=== PATIENT | male | born 1985 | race Two or more races ===

== ENCOUNTER 2017-11-05 13:17 | Inpatient (IN) | payer MEDICAID, OTHER ==
[~2017-11-05] VITALS: Ht 185.4 cm; Wt 135.2 kg
[2017-11-05] MEDS ORDERED: SODIUM CHLORIDE 0.9% 1,000 ML IV ONE (14:02)
[2017-11-05 14:57] LABS: Basophils # (auto) 0.1 uL; Basophils % (auto) 1.5 % (0.0-2.0); Eosinophils # (auto) 0.1 uL; Eosinophils % (auto) 1.4 % (0.0-7.0); Hematocrit 49.2 % (41.0-53.0); Hemoglobin 16.2 g/dL (13.5-17.5); Lymphocytes # (auto) 1.8 uL; Mean Corpuscular Hemoglobin 31.1 pg (28.0-32.0); Mean Corpuscular Volume 94.1 fL (80.0-100.0); Monocytes # (auto) 0.5 uL; Neutrophils # (auto) 6.4 uL; Neutrophils % (auto) 71.1 % (37.0-80.0); Nucleated Red Blood Cells % 0.1 %; Platelet Count (auto) 304 10^3/uL (140-450); Red Blood Cells 5.22 10^6/uL (4.5-5.90); White Blood Cell 8.9 10^3/uL (4.4-10.8)
[2017-11-05 15:18] LABS: Albumin 3.3 g/dL (3.4-5.0); BUN/Creatinine Ratio 11.7; Bilirubin, Total 0.8 mg/dL (0.2-1.0); Calcium 8.1 mg/dL (8.5-10.1); Potassium 4.7 mmol/L (3.5-5.1); Total Protein 8.7 g/dL (6.4-8.2)
[2017-11-05] MEDS ORDERED: InsuLIN R (HUMAN) 100 UNITS in SODIUM CHL 0.9% 99 ML IV SCH (15:34)
[2017-11-05 15:38] LABS: Urine Bacteria NONE SEEN /hpf (None Seen); Urine Blood TRACE /uL (Negative); Urine WBC 11 /hpf (0 - 3)
[2017-11-05] MEDS ORDERED: DEXTROSE (50%) 50ML SYRG IV PRN ×2 (15:45→23:00)
[2017-11-05] MEDS: ACCU-CHEK COMFORT CURVE STRIP VI SCH ×5 (16:05→22:30)
[2017-11-05] MEDS: SODIUM CHLORIDE 0.9% 1,000 ML IV SCH ×3 (16:05→19:42)
[2017-11-05] MEDS ORDERED: PIPERACILLIN-TAZOB 3.375GM 100 ML IV ONE (16:15)
[2017-11-05 16:33] LABS: Magnesium 2.1 mg/dL (1.6-2.6); Phosphorus 3.6 mg/dL (2.5-4.90)
[2017-11-05 18:34] LABS: Lactic Acid w/Reflex 0.9 mmol/L (0.4-2.0)
[2017-11-05] MEDS ORDERED: SODIUM CHLORIDE 0.9% 1,000 ML IV SCH (19:34)
[2017-11-05 22:03] LABS: BUN/Creatinine Ratio 10.1; Calcium 7.3 mg/dL (8.5-10.1); Potassium 3.5 mmol/L (3.5-5.1)
[2017-11-05] MEDS ORDERED: ACETAMINOPHEN 500 MG TAB PO PRN (23:00)
[2017-11-05] MEDS ORDERED: ONDANSETRON HCL 4 MG/2 ML VIAL IV PRN (23:00)
[2017-11-05] MEDS ORDERED: HYDROcodone-ACET 5/325MG TAB PO PRN (23:00)
[2017-11-06 00:01] LABS: Alcohol, Urine < 3.0 mg/dL (0-5); Amphetamine Screen, Urine NEGATIVE (NEGATIVE); Barbiturate Scree,Urine NEGATIVE (NEGATIVE); Benzodiazephine Screen, Urine NEGATIVE (NEGATIVE); Cannabinoid Screen, Urine NEGATIVE (NEGATIVE); Cocaine Screen, Urine NEGATIVE (NEGATIVE); Opiate Scree,Urine NEGATIVE (NEGATIVE); Phencyclidine Screen, Urine NEGATIVE (NEGATIVE)
[2017-11-06] MEDS: InsuLIN REG 1unit/0.01ml Soln (100units/ml) SC SCH ×7 (00:08→23:50)
[2017-11-06] MEDS: ACCU-CHEK COMFORT CURVE STRIP VI SCH ×7 (04:00→23:50)
[2017-11-06 05:00] VITALS: BP 129/80
[2017-11-06 06:09] LABS: Basophils # (auto) 0.1 uL; Basophils % (auto) 1.7 % (0.0-2.0); Eosinophils # (auto) 0.2 uL; Eosinophils % (auto) 2.9 % (0.0-7.0); Hematocrit 42.1 % (41.0-53.0); Hemoglobin 14.7 g/dL (13.5-17.5); Lymphocytes # (auto) 1.8 uL; Lymphocytes % (auto) 25.3 % (10.0-50.0); Mean Corpuscular Hemoglobin 31.3 pg (28.0-32.0); Mean Corpuscular Hgb Conc. 34.8 g/dL (32.0-36.0); Mean Corpuscular Volume 90.1 fL (80.0-100.0); Monocytes # (auto) 0.6 uL; Monocytes % (auto) 8.1 % (0.0-12.0); Neutrophils # (auto) 4.4 uL; Nucleated Red Blood Cells % 0.2 %; Platelet Count (auto) 224 10^3/uL (140-450); Red Blood Cells 4.68 10^6/uL (4.5-5.90); Red Cell Distribution Width 14.7 % (11.8-14.3); White Blood Cell 7.2 10^3/uL (4.4-10.8)
[2017-11-06 06:19] LABS: BUN/Creatinine Ratio 8.9; Calcium 7.4 mg/dL (8.5-10.1); Potassium 3.6 mmol/L (3.5-5.1)
[2017-11-06] MEDS: cefTRIAXone 1GM/10ml IVPUSH 10 ML IV SCH (08:40)
[2017-11-06 09:00] VITALS: BP 130/86
[2017-11-06 13:00] VITALS: BP 139/85
[2017-11-06] MEDS ORDERED: SODIUM CHLORIDE 0.9% 1,000 ML IV SCH (13:30)
[2017-11-06] MEDS ORDERED: POTASSIUM CHL 20MEQ/100ML 100 ML IV ONE (13:30)
[2017-11-06 17:00] VITALS: BP 148/83
[2017-11-06] MEDS: SOD CHL 0.9%/ KCL 20MEQ 1,000 ML IV SCH (17:30)
[2017-11-06 22:00] VITALS: BP 134/77
[2017-11-07] MEDS: SOD CHL 0.9%/ KCL 20MEQ 1,000 ML IV SCH ×3 (03:52→16:02)
[2017-11-07] MEDS: ACCU-CHEK COMFORT CURVE STRIP VI SCH ×6 (03:53→23:57)
[2017-11-07] MEDS: InsuLIN REG 1unit/0.01ml Soln (100units/ml) SC SCH ×6 (04:00→23:57)
[2017-11-07 05:00] VITALS: BP 122/81
[2017-11-07 07:56] LABS: Basophils # (auto) 0.1 uL; Basophils % (auto) 1.4 % (0.0-2.0); Eosinophils # (auto) 0.3 uL; Hematocrit 42.9 % (41.0-53.0); Hemoglobin 14.7 g/dL (13.5-17.5); Lymphocytes % (auto) 34.3 % (10.0-50.0); Mean Corpuscular Hemoglobin 30.5 pg (28.0-32.0); Mean Corpuscular Hgb Conc. 34.4 g/dL (32.0-36.0); Mean Corpuscular Volume 88.8 fL (80.0-100.0); Monocytes # (auto) 0.4 uL; Monocytes % (auto) 7.7 % (0.0-12.0); Neutrophils # (auto) 2.9 uL; Neutrophils % (auto) 51.6 % (37.0-80.0); Nucleated Red Blood Cells % 0.1 %; Platelet Count (auto) 205 10^3/uL (140-450); Red Blood Cells 4.83 10^6/uL (4.5-5.90); Red Cell Distribution Width 14.7 % (11.8-14.3); White Blood Cell 5.7 10^3/uL (4.4-10.8)
[2017-11-07 08:21] LABS: Albumin 2.7 g/dL (3.4-5.0); BUN/Creatinine Ratio 7.5; Bilirubin, Total 0.5 mg/dL (0.2-1.0); Calcium 7.8 mg/dL (8.5-10.1); Magnesium 2.2 mg/dL (1.6-2.6); Potassium 3.5 mmol/L (3.5-5.1); Total Protein 7.2 g/dL (6.4-8.2)
[2017-11-07 09:00] VITALS: BP 125/79
[2017-11-07] MEDS: cefTRIAXone 1GM/10ml IVPUSH 10 ML IV SCH (09:55)
[2017-11-07 13:00] VITALS: BP 159/79
[2017-11-07 17:00] VITALS: BP 153/87
[2017-11-07] MEDS: INSULIN LANTUS (GLARGINE) 1 /0.01ml (100units/ml) SC SCH (21:27)
[2017-11-07 22:05] VITALS: BP 128/85
[2017-11-08] MEDS: SOD CHL 0.9%/ KCL 20MEQ 1,000 ML IV SCH ×3 (02:35→17:27)
[2017-11-08] MEDS: ACCU-CHEK COMFORT CURVE STRIP VI SCH ×6 (04:06→23:28)
[2017-11-08] MEDS: InsuLIN REG 1unit/0.01ml Soln (100units/ml) SC SCH ×6 (04:06→23:29)
[2017-11-08 05:45] VITALS: BP 125/80
[2017-11-08 06:35] LABS: Albumin 2.5 g/dL (3.4-5.0); BUN/Creatinine Ratio 6.5; Calcium 7.8 mg/dL (8.5-10.1); Potassium 3.2 mmol/L (3.5-5.1)
[2017-11-08 06:38] LABS: Bilirubin, Total 0.4 mg/dL (0.2-1.0); Total Protein 6.7 g/dL (6.4-8.2)
[2017-11-08 08:00] VITALS: BP 122/74
[2017-11-08] MEDS: cefTRIAXone 1GM/10ml IVPUSH 10 ML IV SCH (08:00)
[2017-11-08] MEDS ORDERED: POTASSIUM CHL 20 Meq TABLET PO ONE (11:15)
[2017-11-08] MEDS: POTASSIUM CHL 20MEQ/100ML 100 ML IV SCH ×2 (11:15→13:15)
[2017-11-08 12:00] VITALS: BP 138/87
[2017-11-08 17:00] VITALS: BP 128/89
[2017-11-08] MEDS ORDERED: POTASSIUM CHL 20MEQ/100ML 100 ML IV SCH (18:00)
[2017-11-08] MEDS: INSULIN LANTUS (GLARGINE) 1 /0.01ml (100units/ml) SC SCH (21:46)
[2017-11-08 22:00] VITALS: BP 135/77
[2017-11-09] MEDS: ACCU-CHEK COMFORT CURVE STRIP VI SCH ×4 (04:11→16:00)
[2017-11-09] MEDS: InsuLIN REG 1unit/0.01ml Soln (100units/ml) SC SCH ×4 (04:14→16:00)
[2017-11-09] MEDS: SOD CHL 0.9%/ KCL 20MEQ 1,000 ML IV SCH ×3 (05:14→13:30)
[2017-11-09 05:46] VITALS: BP 132/50
[2017-11-09 06:32] LABS: BUN/Creatinine Ratio 12.1; Calcium 8.2 mg/dL (8.5-10.1); Potassium 3.4 mmol/L (3.5-5.1)
[2017-11-09] MEDS ORDERED: SOD CHL 0.9%/ KCL 20MEQ 1,000 ML IV ONE (08:15)
[2017-11-09] MEDS ORDERED: metFORMIN HYDROCHLORIDE 500 MG TAB PO ONE (08:15)
[2017-11-09] MEDS ORDERED: POTASSIUM CHL 20 Meq TABLET PO ONE (08:15)
[2017-11-09] MEDS ORDERED: POTASSIUM CHL 20MEQ/100ML 100 ML IV ONE (08:30)
[2017-11-09] MEDS: cefTRIAXone 1GM/10ml IVPUSH 10 ML IV SCH (08:35)
[2017-11-09 09:23] VITALS: BP 139/75
[2017-11-09 13:00] VITALS: BP 137/90
[2017-11-09 13:29] LABS: Calcium 8.4 mg/dL (8.5-10.1); Potassium 3.7 mmol/L (3.5-5.1)
[2017-11-09 14:44] VITALS: BP 139/75
[2017-11-09 17:05] VITALS: BP 141/90
[2017-11-10] MEDS ORDERED: metFORMIN HYDROCHLORIDE 500 MG TAB PO SCH (07:00)
== END 2017-11-09 16:05 | disposition home or self-care (01) | DRG 469 ==
LOC: ER 13:22 → TELE 13:23 → TELE-WESTW 23:38
PROVIDERS: ADMIT Nurse Practitioner Family; ATTEND Internal Medicine
DX: N17.0 Acute kidney failure with tubular necrosis (principal); E11.00 Type 2 diabetes mellitus with hyperosmolarity without nonketotic hyperglycemic-hyperosmolar coma (NKHHC); E11.10 Type 2 diabetes mellitus with ketoacidosis without coma; E44.0 Moderate protein-calorie malnutrition; E87.0 Hyperosmolality and hypernatremia; N30.00 Acute cystitis without hematuria; E66.9 Obesity, unspecified; E86.0 Dehydration; F17.210 Nicotine dependence, cigarettes, uncomplicated; I10 Essential (primary) hypertension; N48.1 Balanitis; Z83.3 Family history of diabetes mellitus; Z91.19 Patient's noncompliance with other medical treatment and regimen; Z68.39 Body mass index [BMI] 39.0-39.9, adult
CPT/HCPCS: 36415; 71045; 80048; 80053; 80307; 81001; 82010; 82962; 83036; 83605; 83735; 83930; 84100; 85025; 87040; 87086; 96361; 96365; 96368; J0696; J1815; J2543; J3480

== ENCOUNTER 2019-01-21 02:55 | Emergency (ER) | payer MEDICAID, OTHER ==
[~2019-01-21] VITALS: Ht 185.4 cm; Wt 131.5 kg
[2019-01-21 03:20] VITALS: BP 163/95
[2019-01-21 03:26] LABS: Urine WBC None Seen /hpf (0 - 3)
[2019-01-21 03:35] LABS: Urine Bacteria NONE SEEN /hpf (None Seen); Urine Blood Negative /uL (Negative); Urine Specific Gravity 1.016 (1.001-1.035)
[2019-01-21 03:53] LABS: Basophils # (auto) 0.1 uL; Basophils % (auto) 0.7 % (0.0-2.0); Eosinophils # (auto) 0.4 uL; Eosinophils % (auto) 3.2 % (0.0-7.0); Hematocrit 46.3 % (41.0-53.0); Hemoglobin 15.6 g/dL (13.5-17.5); Lymphocytes # (auto) 3.9 uL; Mean Corpuscular Hemoglobin 30.5 pg (28.0-32.0); Mean Corpuscular Hgb Conc. 33.8 g/dL (32.0-36.0); Mean Corpuscular Volume 90.3 fL (80.0-100.0); Monocytes # (auto) 0.9 uL; Neutrophils # (auto) 7.3 uL; Neutrophils % (auto) 58.1 % (37.0-80.0); Nucleated Red Blood Cells % 0.1 %; Platelet Count (auto) 309 10^3/uL (140-450); Red Blood Cells 5.12 10^6/uL (4.5-5.90); Red Cell Distribution Width 13.6 % (11.8-14.3); White Blood Cell 12.5 10^3/uL (4.4-10.8)
[2019-01-21 04:09] LABS: BUN/Creatinine Ratio 16.9; Calcium 8.3 mg/dL (8.5-10.1); Potassium 3.9 mmol/L (3.5-5.1)
[2019-01-21 04:12] LABS: Bilirubin, Total 0.2 mg/dL (0.2-1.0); Total Protein 7.6 g/dL (6.4-8.2)
== END 2019-01-21 09:55 | disposition left against medical advice (07) ==
LOC: ER 02:56
DX: R11.2 Nausea with vomiting, unspecified (principal); Z53.21 Procedure and treatment not carried out due to patient leaving prior to being seen by health care provider
CPT/HCPCS: 36415; 74176; 80053; 81001; 85025